=== PATIENT | female | born 1935 | race Caucasian/White ===

== ENCOUNTER 2022-02-05 19:13 | Emergency (ER) | payer OTHER, MEDICARE ==
[2022-02-05 21:05] LABS: Hemoglobin 8.4 g/dL (12.0-16.0); Mean Corpuscular HGB CONC 31.2 g/dL (32.0-36.0); Mean Corpuscular Hemoglobin 24.1 pg (27.0-31.0); Mean Corpuscular Volume 77.1 fL (78.0-98.0); Mean Platelet Volume 5.4 fL (7.4-10.4); Platelet Count 252 thou/uL (130-400); RBC Distribution Width 18.5 % (11.5-14.5); Red Blood Cell (RBC) Count 3.47 mill/uL (4.20-5.40); White Blood Cell (WBC) Count 10.5 thou/uL (4.8-10.8)
[2022-02-05 21:06] LABS: #Basophils 0.1 thou/uL (0.0-0.2); #Eosinphils 0.2 thou/uL (0.0-0.7); #Lymphocytes 2.6 thou/uL (1.20-3.40); #Monocytes 0.6 thou/uL (0.11-0.59); %Eosinophils 1.5 % (0.0-10.0); %Lymphocytes 24.4 % (21.0-51.0); %Monocytes 5.9 % (0.0-10.0); %Neutrophils 67.2 % (42.0-75.0)
[2022-02-05 21:18] LABS: ALT (SGPT) 13 U/L (8-55); AST (SGOT) 28 U/L (5-34); Albumin 2.6 g/dL (3.4-4.8); Alkaline Phosphatase 73 U/L (40-110); Anion Gap 14 mmol/L (10-20); BUN (Urea Nitrogen) 20 mg/dL (9.8-20.1); Bilirubin, Total Less than 0.2 mg/dL (0.2-1.2); Calc. Creatinine Clearance 0 mL/min (70-130); Calcium 8.4 mg/dL (7.8-10.44); Carbon Dioxide 29 mmol/L (23-31); Chloride 101 mmol/L (98-107); Estimated GFR 46; Globulin 5.4 g/dL (2.4-3.5); Glucose 131 mg/dL (83-110); Potassium 3.9 mmol/L (3.5-5.1); Sodium 140 mmol/L (136-145)
[2022-02-05] MEDS ORDERED: rOPINIRole HCl 0.25 MG TAB PO SCH (21:30)
[2022-02-05 21:37] LABS: Anisocytosis SLIGHT = 6-15 cells (100X) (0-5/hpf); MDiff Complete? YES; Microcytosis SLIGHT = 6-15 cells (100X) (0-5/hpf); Platelet Morphology Comment Appears Adequate
[2022-02-05] MEDS ORDERED: Piperacillin/Tazobactam 4.5 GM VIAL ONE (22:19)
[2022-02-05] MEDS ORDERED: Sodium Chloride 0.9% 100 ML ONE (22:20)
[2022-02-06 01:14] LABS: SARS-CoV-2 NAA Rapid Test DETECTED (NotDetected)
[2022-02-06] MEDS ORDERED: rOPINIRole HCl 0.25 MG TAB PO SCH (09:00)
== END 2022-02-06 00:35 | disposition short-term general hospital (02) ==
LOC: BURERS 19:13
DX: U07.1 COVID-19 (principal); J12.82 Pneumonia due to coronavirus disease 2019
CPT/HCPCS: 36415; 70450; 71045; 71250; 80053; 83880; 84484; 85025; 87040; 93005; 96365; J2543; J3490; U0002